=== PATIENT | male | born 1960 | race Caucasian/White ===

== ENCOUNTER → 2019-06-07 | Outpatient (REF) | payer OTHER ==
[2019-06-07 13:32] LABS: BASO # 0.1 10^3/uL (0.0-0.2); BASO % 0.9 % (0.0-1.0); EOS # 0.3 10^3/uL (0.0-0.5); EOS % 3.7 % (0.0-3.0); HEMATOCRIT 47.5 % (42.0-52.0); LYMPH # 2.2 10^3/uL (1.5-5.0); LYMPH % 32.7 % (24.0-44.0); MEAN CORPUSCULAR HEMOGLOBIN 30.4 pg (27.0-33.0); MEAN CORPUSCULAR HGB CONC 33.7 g/dl (32.0-36.5); MEAN CORPUSCULAR VOLUME 90.1 fl (80.0-96.0); MONO # 0.6 10^3/uL (0.0-0.8); MONO % 9.4 % (0.0-5.0); NEUTROPHILS # 3.6 10^3/uL (1.5-8.5); PLATELET COUNT, AUTOMATED 192 10^3/uL (150-450); RED BLOOD COUNT 5.27 10^6/uL (4.30-6.10); WHITE BLOOD COUNT 6.8 10^3/uL (4.0-10.0)
[2019-06-07 13:48] LABS: HEMOGLOBIN A1c 5.3 %
[2019-06-07 14:12] LABS: ERYTHROCYTE SEDIMENTATION RATE 3 mm/hr (0-20)
[2019-06-07 14:17] LABS: CPK CREATINE PHOSPHOKINASE 204 U/L (39-308); FOLATE > 24.0 NG/ML; FREE T4 1.08 NG/DL (0.76-1.46); RHEUMATOID FACTOR QUANT < 10.0 IU/ML (<15.0); VITAMIN B12 LEVEL 364 PG/ML
[2019-06-11 11:48] LABS: ALBUMIN % 65.2 % (55.8-66.1); ALPHA-1-GLOBULIN % 3.5 % (2.9-4.9); ALPHA-2-GLOBULINS % 7.9 % (7.1-11.8); BETA-1-GLOBULINS % 6.1 % (4.7-7.2); BETA-2-GLOBULINS % 5.7 % (3.2-6.5); GAMMA GLOBULIN % 11.6 % (11.1-18.8)
[2019-06-11 11:49] LABS: ALBUMIN 4.56 GM/DL (3.29-5.55); ALPHA-1-GLOBULINS 0.25 GM/DL (0.17-0.41); ALPHA-2-GLOBULINS 0.55 GM/DL (0.42-0.99); BETA-1-GLOBULINS 0.43 GM/DL (0.28-0.60); GAMMA GLOBULINS 0.81 GM/DL (0.65-1.58)
== END ==
LOC: M LABNEURO 11:11
PROVIDERS: ATTEND Psychiatry & Neurology Neurology
DX: G62.9 Polyneuropathy, unspecified (principal); G89.29 Other chronic pain; M54.5 Low back pain

== ENCOUNTER → 2019-08-15 | Outpatient (CLI) | payer OTHER | LOC: M LAB 14:44 | PROVIDERS: ATTEND Psychiatry & Neurology Neurology | DX: R53.1 Weakness (principal) ==

== ENCOUNTER → 2024-10-13 | Day surgery (SDC) | payer MEDICARE, OTHER ==
[~2024-10-13] VITALS: Ht 177.8 cm; Wt 66.8 kg
[~2024-10-13] MED LIST: FAMO40TA3 PO; FAMOTIDINE 20 MG TAB PO SCH; GLYCOPYRROLATE INJ 0.2 MG/ML 2 ML VIAL As Ordered ONE; LIDOCAINE 2% 100MG/5ML SDV (FOR ANES.) As Ordered ONE; MEPERIDINE 25 MG/ML 1ML VIAL As Ordered ONE; NS (Normal Saline) 0.9% 1,000 ML IV SCH; ONDANSETRON 4MG 2ML VIAL IV PRN; propofoL 200 MG/20 ML VIAL As Ordered ONE
[2024-10-13 18:40] VITALS: TEMP 97.3
[2024-10-13] MEDS: PANTOPRAZOLE 40MG VIAL IV ONE (19:01)
[2024-10-13] MEDS: MEPERIDINE 25 MG/ML 1ML VIAL IV PRN (19:24)
[2024-10-13 19:30] VITALS: BP 125/70; O2SAT 99
== END | disposition home or self-care (01) ==
LOC: M ED 12:49 → M SDC 17:23
PROVIDERS: ATTEND Surgery
DX: T18.120A Food in esophagus causing compression of trachea, initial encounter (principal); K44.9 Diaphragmatic hernia without obstruction or gangrene
CPT/HCPCS: 43247; 99284; J1596; J2175; J2470